=== PATIENT | female | born 1965 | race Caucasian/White ===

== ENCOUNTER 2025-05-12 15:43 | Inpatient (IN) | payer OTHER ==
[2025-05-12 16:52] LABS: #Basophils 0.03 10x3/uL (0.0-0.2); #Eosinophils Less than 0.03 10x3/uL (0.0-0.7); #Monocytes 0.37 10x3/uL (0.11-0.59); #Neutrophils 12.17 10x3/uL (1.40-6.50); %Basophils 0.2 % (0.0-1.0); %Eosinophils 0.1 % (0.0-10.0); %Lymphocytes 6.1 % (21.0-51.0); %Monocytes 2.8 % (0.0-10.0); %Neutrophils 90.5 % (42.0-75.0); Hematocrit 43.6 % (36.0-47.0); Hemoglobin 15.0 g/dL (12.0-16.0); Mean Corpuscular Hemoglobin 28.0 pg (27.0-31.0); Mean Corpuscular Volume 81.3 fL (78.0-98.0); Platelet Count 228 10x3/uL (130-400); Red Blood Cell (RBC) Count 5.36 mill/uL (4.20-5.40); White Blood Cell (WBC) Count 13.44 10x3/uL (4.8-10.8)
[2025-05-12 17:15] LABS: ALT (SGPT) 59 U/L (Less than 34); AST (SGOT) 58 U/L (11-34); Albumin 3.7 g/dL (3.1-4.5); Alkaline Phosphatase 135 U/L (40-110); Anion Gap 11 mmol/L (10-20); BUN (Urea Nitrogen) 8 mg/dL (9.8-20.1); Bilirubin, Total 0.8 mg/dL (0.3-1.2); Calc. Creatinine Clearance 0 mL/min (70-130); Calcium 9.8 mg/dL (7.8-10.44); Carbon Dioxide 26 mmol/L (23-31); Chloride 99 mmol/L (98-107); Globulin 3.4 g/dL (2.4-3.5); Glucose 370 mg/dL (80-115); Lipase 10 U/L (8-78); Potassium 3.5 mmol/L (3.5-5.1); Sodium 132 mmol/L (136-145)
[2025-05-12] MEDS ORDERED: hydrALAZINE 20 MG/ML VIAL ONE ×2 (17:57→19:34)
[2025-05-12 22:17] VITALS: BMI 30.7
[2025-05-12] MEDS ORDERED: Dextrose 50% Abboject 50 ML SYRINGE SLOW IVP PRN (22:47)
[2025-05-12] MEDS ORDERED: Ondansetron PF 4 MG/2 ML Vial IVP PRN (22:47)
[2025-05-12] MEDS ORDERED: Glucagon 1 MG/ML KIT IM PRN (22:47)
[2025-05-13 07:11] LABS: #Basophils 0.04 10x3/uL (0.0-0.2); #Eosinophils 0.04 10x3/uL (0.0-0.7); #Monocytes 0.68 10x3/uL (0.11-0.59); #Neutrophils 8.66 10x3/uL (1.40-6.50); %Basophils 0.4 % (0.0-1.0); %Eosinophils 0.4 % (0.0-10.0); %Lymphocytes 12.3 % (21.0-51.0); %Monocytes 6.3 % (0.0-10.0); %Neutrophils 80.3 % (42.0-75.0); Hematocrit 44.2 % (36.0-47.0); Hemoglobin 14.5 g/dL (12.0-16.0); Mean Corpuscular Hemoglobin 27.5 pg (27.0-31.0); Mean Corpuscular Volume 83.9 fL (78.0-98.0); Platelet Count 233 10x3/uL (130-400); Red Blood Cell (RBC) Count 5.27 mill/uL (4.20-5.40); White Blood Cell (WBC) Count 10.78 10x3/uL (4.8-10.8)
[2025-05-13 07:49] LABS: ALT (SGPT) 50 U/L (Less than 34); AST (SGOT) 30 U/L (11-34); Albumin 3.3 g/dL (3.1-4.5); Alkaline Phosphatase 129 U/L (40-110); Anion Gap 11 mmol/L (10-20); BUN (Urea Nitrogen) 10 mg/dL (9.8-20.1); Bilirubin, Total 1.4 mg/dL (0.3-1.2); Calc. Creatinine Clearance 97 mL/min (70-130); Calcium 9.7 mg/dL (7.8-10.44); Carbon Dioxide 24 mmol/L (23-31); Chloride 101 mmol/L (98-107); Globulin 3.2 g/dL (2.4-3.5); Glucose 343 mg/dL (80-115); Potassium 3.5 mmol/L (3.5-5.1); Sodium 132 mmol/L (136-145)
[2025-05-13] MEDS: hydrALAZINE 20 MG/ML VIAL SLOW IVP PRN (08:54)
[2025-05-13] MEDS ORDERED: SUGAMMADEX SODIUM 200 MG/2 ML VIAL ONE (11:12)
[2025-05-13] MEDS ORDERED: Lidocaine 1% PF 5 ML VIAL ONE (11:12)
[2025-05-13] MEDS ORDERED: fentaNYL PF 100 MCG/2 ML SYRINGE ONE ×2 (11:12→13:11)
[2025-05-13] MEDS ORDERED: PROPOFOL 20 ML ONE (11:12)
[2025-05-13] MEDS ORDERED: Ondansetron PF 4 MG/2 ML Vial ONE (11:12)
[2025-05-13] MEDS ORDERED: Rocuronium Bromide 10 MG/ML (10ML VIAL) ONE (11:12)
[2025-05-13] MEDS ORDERED: SUCCINYLCHOLINE/SOD CL,ISO/PF 200 MG/10 ML SYRINGE FS ONE (11:45)
[2025-05-13 15:21] VITALS: BMI 30.7
[2025-05-13] MEDS: hydrALAZINE 20 MG/ML VIAL SLOW IVP SCH (18:16)
[2025-05-13] MEDS: Famotidine 20 MG TAB PO SCH (19:38)
[2025-05-14 06:03] LABS: #Basophils 0.03 10x3/uL (0.0-0.2); #Eosinophils Less than 0.03 10x3/uL (0.0-0.7); #Monocytes 0.62 10x3/uL (0.11-0.59); #Neutrophils 8.58 10x3/uL (1.40-6.50); %Basophils 0.3 % (0.0-1.0); %Eosinophils 0.2 % (0.0-10.0); %Lymphocytes 14.0 % (21.0-51.0); %Monocytes 5.7 % (0.0-10.0); %Neutrophils 79.4 % (42.0-75.0); Hematocrit 41.5 % (36.0-47.0); Hemoglobin 13.4 g/dL (12.0-16.0); Mean Corpuscular Hemoglobin 27.3 pg (27.0-31.0); Mean Corpuscular Volume 84.7 fL (78.0-98.0); Platelet Count 244 10x3/uL (130-400); Red Blood Cell (RBC) Count 4.90 mill/uL (4.20-5.40); White Blood Cell (WBC) Count 10.80 10x3/uL (4.8-10.8)
[2025-05-14 06:29] LABS: ALT (SGPT) 66 U/L (Less than 34); AST (SGOT) 70 U/L (11-34); Albumin 3.0 g/dL (3.1-4.5); Alkaline Phosphatase 118 U/L (40-110); Anion Gap 11 mmol/L (10-20); BUN (Urea Nitrogen) 11 mg/dL (9.8-20.1); Bilirubin, Total 1.2 mg/dL (0.3-1.2); Calc. Creatinine Clearance 99 mL/min (70-130); Calcium 9.6 mg/dL (7.8-10.44); Carbon Dioxide 23 mmol/L (23-31); Chloride 103 mmol/L (98-107); Globulin 3.1 g/dL (2.4-3.5); Glucose 296 mg/dL (80-115); Potassium 3.6 mmol/L (3.5-5.1); Sodium 133 mmol/L (136-145)
[2025-05-15 13:17] LABS: #Basophils 0.04 10x3/uL (0.0-0.2); #Eosinophils 0.05 10x3/uL (0.0-0.7); #Monocytes 0.73 10x3/uL (0.11-0.59); #Neutrophils 9.13 10x3/uL (1.40-6.50); %Basophils 0.3 % (0.0-1.0); %Eosinophils 0.4 % (0.0-10.0); %Lymphocytes 12.9 % (21.0-51.0); %Monocytes 6.4 % (0.0-10.0); %Neutrophils 79.6 % (42.0-75.0); Hematocrit 45.4 % (36.0-47.0); Hemoglobin 15.0 g/dL (12.0-16.0); Mean Corpuscular Hemoglobin 27.8 pg (27.0-31.0); Mean Corpuscular Volume 84.1 fL (78.0-98.0); Platelet Count 291 10x3/uL (130-400); Red Blood Cell (RBC) Count 5.40 mill/uL (4.20-5.40); White Blood Cell (WBC) Count 11.48 10x3/uL (4.8-10.8)
[2025-05-15 13:39] LABS: ALT (SGPT) 64 U/L (Less than 34); AST (SGOT) 45 U/L (11-34); Albumin 3.0 g/dL (3.1-4.5); Alkaline Phosphatase 124 U/L (40-110); Anion Gap 12 mmol/L (10-20); BUN (Urea Nitrogen) 10 mg/dL (9.8-20.1); Bilirubin, Total 0.9 mg/dL (0.3-1.2); Calc. Creatinine Clearance 122 mL/min (70-130); Calcium 10.5 mg/dL (7.8-10.44); Carbon Dioxide 20 mmol/L (23-31); Chloride 101 mmol/L (98-107); Globulin 3.8 g/dL (2.4-3.5); Glucose 396 mg/dL (80-115); Potassium 3.7 mmol/L (3.5-5.1); Sodium 129 mmol/L (136-145)
[2025-05-15] MEDS: Insulin Glargine 30 UNITS/0.3 ML VIAL SC SCH (17:16)
[2025-05-15] MEDS: Enoxaparin 40 MG (0.4 mL) SYRINGE SC SCH (21:44)
[2025-05-16 05:48] LABS: #Basophils 0.05 10x3/uL (0.0-0.2); #Eosinophils 0.19 10x3/uL (0.0-0.7); #Monocytes 0.56 10x3/uL (0.11-0.59); #Neutrophils 4.79 10x3/uL (1.40-6.50); %Basophils 0.7 % (0.0-1.0); %Eosinophils 2.6 % (0.0-10.0); %Lymphocytes 22.8 % (21.0-51.0); %Monocytes 7.7 % (0.0-10.0); %Neutrophils 65.8 % (42.0-75.0); Hematocrit 39.2 % (36.0-47.0); Hemoglobin 13.3 g/dL (12.0-16.0); Mean Corpuscular Hemoglobin 28.1 pg (27.0-31.0); Mean Corpuscular Volume 82.7 fL (78.0-98.0); Platelet Count 282 10x3/uL (130-400); Red Blood Cell (RBC) Count 4.74 mill/uL (4.20-5.40); White Blood Cell (WBC) Count 7.28 10x3/uL (4.8-10.8)
[2025-05-16 06:11] LABS: ALT (SGPT) 45 U/L (Less than 34); AST (SGOT) 31 U/L (11-34); Albumin 2.5 g/dL (3.1-4.5); Alkaline Phosphatase 103 U/L (40-110); Anion Gap 15 mmol/L (10-20); BUN (Urea Nitrogen) 13 mg/dL (9.8-20.1); Bilirubin, Total 0.6 mg/dL (0.3-1.2); Calc. Creatinine Clearance 112 mL/min (70-130); Calcium 10.5 mg/dL (7.8-10.44); Carbon Dioxide 21 mmol/L (23-31); Chloride 102 mmol/L (98-107); Globulin 3.5 g/dL (2.4-3.5); Glucose 208 mg/dL (80-115); Potassium 3.5 mmol/L (3.5-5.1); Sodium 134 mmol/L (136-145)
[2025-05-16 12:18] VITALS: BP 147/77; TEMP 97.6
[2025-05-16] MEDS ORDERED: Insulin Glargine 30 UNITS/0.3 ML VIAL SC SCH (21:00)
== END 2025-05-16 12:31 | disposition home or self-care (01) | DRG 419 ==
LOC: ERS 15:43 → SURG B 21:32
PROVIDERS: ADMIT Surgery; ATTEND Surgery
PROC: 3E03329 Introduction of Other Anti-infective into Peripheral Vein, Percutaneous Approach (ICD-10-PCS; 2025-05-12)
PROC: 0FT44ZZ Resection of Gallbladder, Percutaneous Endoscopic Approach (ICD-10-PCS; principal; 2025-05-13)
PROC: 8E0W4CZ Robotic Assisted Procedure of Trunk Region, Percutaneous Endoscopic Approach (ICD-10-PCS; 2025-05-13)
DX: K80.00 Calculus of gallbladder with acute cholecystitis without obstruction (principal); I10 Essential (primary) hypertension; M19.90 Unspecified osteoarthritis, unspecified site; E11.65 Type 2 diabetes mellitus with hyperglycemia; Z90.89 Acquired absence of other organs
CPT/HCPCS: 36415; 36416; 76705; 80053; 83036; 83690; 85025; 88304; 96365; 96375; 96376; C1889; J0360; J1100; J1650; J1815; J2272; J2405; J2543; J2704; J3010; J7120; S2900